=== PATIENT | female | born 1975 | race Caucasian/White ===

== ENCOUNTER → 2019-05-20 | Outpatient (CLI) | payer BC ==
--- NOTE | 2019-05-20 12:56 | KCIC ---
MR of the right knee HISTORY: Right knee pain for one month after a fall. TECHNIQUE: Routine multiplanar sequences are obtained. FINDINGS: Mild blunting of the free margin of the body of the medial meniscus on a single coronal slice. Signal at the body of the lateral meniscus compatible with a degenerative tear. This extends to the superior articular surface. Anterior cruciate ligament is intact. Posterior cruciate ligament is thick and heterogeneous compatible with partial tearing, particularly distally with a tear is high-grade. Medial collateral ligament is intact. Iliotibial band unremarkable. Fibular collateral ligament, biceps femoris tendon and popliteus tendon are intact. Extensor mechanism is intact. Small joint effusion. At least moderate chondromalacia of the patellofemoral and lateral joint compartments, mild degenerative changes at the medial joint. No bone destruction or acute fracture. Degenerative changes at the proximal tibiofibular joint. IMPRESSION: 1. Lateral meniscal tear. 2. Single slice free edge blunting of the medial meniscus, compatible with a possible small tear. 3. High-grade tear of the distal posterior cruciate ligament. 4. Primary osteoarthritis. Electronically signed by: Tom Jean Baptiste MD (05/20/2019 12:53 PM) [id number]
== END | disposition home or self-care (01) ==
LOC: KCIC MRI 09:55
PROVIDERS: ATTEND Nurse Practitioner Family
DX: S83.521A Sprain of posterior cruciate ligament of right knee, initial encounter (principal); S83.281A Other tear of lateral meniscus, current injury, right knee, initial encounter; M17.11 Unilateral primary osteoarthritis, right knee; M25.461 Effusion, right knee; M94.261 Chondromalacia, right knee; X58.XXXA Exposure to other specified factors, initial encounter; Y93.89 Activity, other specified; Y92.89 Other specified places as the place of occurrence of the external cause; Y99.8 Other external cause status
CPT/HCPCS: 73721